=== PATIENT | female | born 1985 | race Caucasian/White ===

== ENCOUNTER 2017-01-22 15:15 | Outpatient (CLI) | payer BC ==
--- NOTE | 2017-01-23 09:19 | XRAY Report ---
THREE-VIEW RIGHT ANKLE: 01/22/2017 CLINICAL INDICATION: Inversion injury. FINDINGS: AP, lateral, oblique views of the right ankle demonstrate soft tissue swelling. There is no evidence of fracture or dislocation. Accessory ossicles are incidentally noted. No effusion is p resent. IMPRESSION: SOFT TISSUE SWELLING, BUT NO EVIDENCE OF ACUTE FRACTURE. 9:9:04 JOB #: [id number] EXT JOB #:[id number]
== END 2017-01-22 23:59 | disposition home or self-care (01) ==
LOC: DI 15:15
PROVIDERS: ATTEND Family Medicine
DX: M25.471 Effusion, right ankle (principal)

== ENCOUNTER 2018-10-13 08:00 | Outpatient (CLI) | payer BC | END 2018-10-13 23:59 | disposition home or self-care (01) | LOC: LAB.R 08:00 | PROVIDERS: ATTEND Physician Assistant | DX: J02.9 Acute pharyngitis, unspecified (principal) | CPT/HCPCS: 87070 ==

== ENCOUNTER 2019-12-05 10:57 | Outpatient (CLI) | payer BC ==
[2019-12-05 18:08] LABS: BASOPHILS # (AUTO) 0.1 10^3/uL (0.0-0.1); EOSINOPHILS # (AUTO) 0.2 10^3/uL (0.0-0.7); EOSINOPHILS % (AUTO) 3.9 %; HGB - HEMOGLOBIN 12.5 g/dL (12.0-16.0); LYMPHOCYTES # (AUTO) 1.6 10^3/uL (1.5-3.5); MEAN CORPUSCULAR HEMOGLOBIN 28.3 pg (27.0-31.0); MEAN CORPUSCULAR HGB CONC 30.8 g/dL (32.0-36.0); MEAN CORPUSCULAR VOLUME 91.9 fL (81.0-99.0); MEAN PLATELET VOLUME 12.9 fL (7.9-10.8); MONOCYTES # (AUTO) 0.4 10^3/uL (0.0-1.0); MONOCYTES % (AUTO) 7.8 %; NEUTROPHILS # (AUTO) 2.9 10^3/uL (1.5-6.6); NEUTROPHILS % (AUTO) 56.1 %; PLT - PLATELET COUNT 181 10^3/uL (130-450); RED BLOOD COUNT 4.42 10^6/uL (4.20-5.40); RED CELL DISTRIBUTION WIDTH 12.7 % (12.0-15.0); WHITE BLOOD COUNT 5.1 x10^3/uL (4.8-10.8)
[2019-12-05 18:36] LABS: HB2 TOTAL 13.3 g/dL; HEMOGLOBIN A1C 0.54 g/dL; HEMOGLOBIN A1C % 5.9 % (4.6-6.2)
[2019-12-05 18:41] LABS: ALBUMIN 4.6 g/dL (3.2-5.5); ALBUMIN/GLOBULIN RATIO 1.5 (1.0-2.2); BILIRUBIN,TOTAL 0.6 mg/dL (0.2-1.0); CALCIUM 9.2 mg/dL (8.5-10.3); CREATININE 0.7 mg/dL (0.4-1.0); TOTAL PROTEIN 7.7 g/dL (6.7-8.2)
== END 2019-12-05 23:59 | disposition home or self-care (01) ==
LOC: LAB.WCP 10:57
PROVIDERS: ATTEND Physician Assistant
DX: I10 Essential (primary) hypertension (principal); M79.673 Pain in unspecified foot; G89.29 Other chronic pain; Z13.1 Encounter for screening for diabetes mellitus
CPT/HCPCS: 36415; 80053; 83036; 84443; 85025; 85651

== ENCOUNTER 2019-12-05 11:00 | Outpatient (CLI) | payer BC ==
--- NOTE | 2019-12-05 11:58 | XRAY Report ---
Reason: LEFT 3RD FINGER PAIN Procedure Date: 12/05/2019 Accession Number: [id number] / [id number] Procedure: WCP - Finger(s) LT CPT Code: Final Report FULL RESULT: PROCEDURE: Finger(s) LT INDICATIONS: LEFT 3RD FINGER PAIN TECHNIQUE: 3 views of the third finger(s) acquired. COMPARISON: None FINDINGS: Bones: No fractures or dislocations. No suspicious bony lesions. Soft tissues: No suspicious soft tissue calcifications. IMPRESSION: Unremarkable radiographic examination of third finger. Reviewed by: Paul Kohler MD on 12/05/2019 11:56 AM PDT Approved by: Paul Kohler MD on 12/05/2019 11:56 AM PDT Station ID: [id number]
--- NOTE | 2019-12-05 12:03 | XRAY Report ---
Reason: CHRONIC FOOT PAIN Procedure Date: 12/05/2019 Accession Number: [id number] / [id number] Procedure: WCP - Foot 2 View BILAT CPT Code: Final Report FULL RESULT: PROCEDURE: Foot 2 View BILAT INDICATIONS: CHRONIC FOOT PAIN TECHNIQUE: 3 views of the foot were acquired. COMPARISON: None FINDINGS: Bones: No fractures or dislocations. No suspicious bony lesions. Soft tissues: No tibiotalar joint effusion. Achilles tendon appears normal. IMPRESSION: Unremarkable radiographic examination of bilateral feet. Reviewed by: Paul Kohler MD on 12/05/2019 12:01 PM PDT Approved by: Paul Kohler MD on 12/05/2019 12:01 PM PDT Station ID: [id number]
== END 2019-12-05 23:59 | disposition home or self-care (01) ==
LOC: DI.WCP 11:00
PROVIDERS: ATTEND Physician Assistant
DX: M79.645 Pain in left finger(s) (principal); M79.671 Pain in right foot; M79.672 Pain in left foot; I10 Essential (primary) hypertension; G89.29 Other chronic pain; Z13.1 Encounter for screening for diabetes mellitus
CPT/HCPCS: 36415; 73140; 80053; 83036; 84443; 85025; 85651

== ENCOUNTER 2020-01-13 08:42 | Outpatient (CLI) | payer BC ==
[2020-01-13 12:46] LABS: BASOPHILS % (AUTO) 0.6 %; EOSINOPHILS # (AUTO) 0.5 10^3/uL (0.0-0.7); EOSINOPHILS % (AUTO) 6.9 %; HGB - HEMOGLOBIN 12.8 g/dL (12.0-16.0); LYMPHOCYTES # (AUTO) 1.8 10^3/uL (1.5-3.5); LYMPHOCYTES % (AUTO) 25.8 %; MEAN CORPUSCULAR HEMOGLOBIN 28.3 pg (27.0-31.0); MEAN CORPUSCULAR HGB CONC 31.9 g/dL (32.0-36.0); MEAN CORPUSCULAR VOLUME 88.7 fL (81.0-99.0); MEAN PLATELET VOLUME 12.2 fL (7.9-10.8); MONOCYTES # (AUTO) 0.4 10^3/uL (0.0-1.0); MONOCYTES % (AUTO) 6.2 %; NEUTROPHILS # (AUTO) 4.1 10^3/uL (1.5-6.6); NEUTROPHILS % (AUTO) 60.2 %; PLT - PLATELET COUNT 176 10^3/uL (130-450); RED BLOOD COUNT 4.52 10^6/uL (4.20-5.40); RED CELL DISTRIBUTION WIDTH 11.7 % (12.0-15.0); WHITE BLOOD COUNT 6.8 x10^3/uL (4.8-10.8)
[2020-01-13 12:58] LABS: CRP - C-REACTIVE PROTEIN 1.1 mg/dL (0-1.0)
[2020-01-13 13:20] LABS: URIC ACID 7.1 mg/dL (2.6-7.2)
== END 2020-01-13 23:59 | disposition home or self-care (01) ==
LOC: LAB.WCP 08:42
PROVIDERS: ATTEND Nurse Practitioner Psychiatric/Mental Health
DX: L08.9 Local infection of the skin and subcutaneous tissue, unspecified (principal); R60.0 Localized edema; M79.645 Pain in left finger(s); I10 Essential (primary) hypertension; M79.675 Pain in left toe(s)
CPT/HCPCS: 36415; 81599; 82533; 83525; 84550; 85025; 86038; 86140; 86376; 86430; 86800; 86812